=== PATIENT | male | born 1970 | race Caucasian/White ===

== ENCOUNTER 2017-05-11 05:03 | Emergency (ER) | payer BC, OTHER ==
--- NOTE | 2017-05-11 05:22 | ED Physician Documentation ---
PD HPI URI - Stated complaint Stated Complaint: CHEST CONGESTION,COUGH - Chief complaint Chief Complaint: Resp - History obtained from History obtained from: Patient - History of Present Illness Timing - onset: Yesterday Timing details: Abrupt onset Associated symptoms: Dry cough. No: Fever, Chills, Sweats, Ear pain, Sinus pain , Sore throat Improves by: Nothing Recently seen: Not recently seen - Additional information Additional information: patient had URI symptoms for last few weeks and these nearly resolved until yesterday after he came home from work in the evening when he had sudden worsening of chest congestion, cough, malaise, fatigue Review of Systems Constitutional: reports: Fatigue. denies: Fever, Chills, Sweats Ears: denies: Ear pain Nose: reports: Reviewed and negative Throat: denies: Sore throat Cardiac: reports: Reviewed and negative Respiratory: reports: Cough. denies: Dyspnea GI: reports: Reviewed and negative : denies: Dysuria, Frequency PD PAST MEDICAL HISTORY - Past Medical History Cardiovascular: None Respiratory: Asthma Endocrine/Autoimmune: None GI: GERD : None HEENT: None Psych: Depression, Anxiety Musculoskeletal: None Derm: None - Past Surgical History Past Surgical History: No - Present Medications Home Medications: Ambulatory Orders Medication Instructions Recorded Confirmed Aspirin [Aspir 81] 81 mg PO DAILY 11/16/14 05/11/17 Amitriptyline [Elavil] 10 mg PO DAILY 05/11/17 05/11/17 Benzonatate [Tessalon Perle] 100 mg PO Q6HR PRN #20 capsule 05/11/17 Levothyroxine [Synthroid] 50 mcg PO DAILY 05/11/17 05/11/17 Omeprazole [PriLOSEC] 40 mg PO DAILY 05/11/17 05/11/17 Oseltamivir [Tamiflu] 75 mg PO BID #10 capsule 05/11/17 guaiFENesin/CODEINE [Robitussin AC] 5 - 10 ml PO Q6H PRN #100 udc 05/11/17 - Allergies Allergies/Adverse Reactions: Allergies Allergy/AdvReac Type Severity Reaction Status Date / Time No Known Drug Allergies Allergy Verified 05/11/17 05:10 - Social History Does the pt smoke?: No Smoking Status: Never smoker Does the pt drink ETOH?: Yes Does the pt have substance abuse?: No - Immunizations Immunizations are current?: Yes - POLST Patient has POLST: No PD ED PE NORMAL - Vitals Vital signs reviewed: Yes - General General: Alert and oriented X 3, No acute distress, Well developed/nourished - Cardiac Cardiac: RRR, No murmur, No gallop, No rub - Respiratory Respiratory: No respiratory distress, Clear bilaterally - Back Back: No CVA TTP Results - Vitals Vitals: Vital Signs - 24 hr 05/11/17 05/11/17 05:07 06:32 Temperature 36.6 C 36.7 C Heart Rate 100 78 Respiratory 16 16 Rate Blood Pressure 172/112 H 133/98 H O2 Saturation 97 97 Oxygen O2 Source Room air - Rads (name of study) chest xray Radiology: Prelim report reviewed, See rad report PD MEDICAL DECISION MAKING - ED course Complexity details: reviewed results, re-evaluated patient, considered differential, d/w patient Departure - Departure Disposition: 01 Home, Self Care Clinical Impression: Bronchitis Condition: Good Instructions: ED Upper Resp Infec No Abx Tx Follow-Up: Gianni Tang MD [Primary Care Provider] - (3-5 days if symptoms have not resolved) Prescriptions: Benzonatate [Tessalon Perle] 100 mg PO Q6HR PRN #20 capsule PRN Reason: Cough guaiFENesin/CODEINE [Robitussin AC] 5 - 10 ml PO Q6H PRN #100 udc PRN Reason: Cough Discharge Date/Time: 05/11/17 06:32
--- NOTE | 2017-05-11 06:02 | XRAY Report ---
EXAM: CHEST RADIOGRAPHY EXAM DATE: 05/11/2017 05:48 AM. CLINICAL HISTORY: Cough, chest congestion. COMPARISON: None. TECHNIQUE: 2 views. FINDINGS: Lungs/Pleura: No focal opacities evident. No pleural effusion. No pneumothorax. Normal volumes. Mediastinum: Heart and mediastinal contours are unremarkable. Other: None. IMPRESSION: Normal 2-view chest radiography. [facility] Referring Provider Line: [phone] SITE ID: [id number]
[2017-05-11 06:33] VITALS: BP 133/98
== END 2017-05-11 06:32 | disposition home or self-care (01) ==
LOC: ED 05:03
DX: J40 Bronchitis, not specified as acute or chronic (principal); Z79.82 Long term (current) use of aspirin
CPT/HCPCS: 71046; 99283

== ENCOUNTER 2017-05-11 15:46 | Emergency (ER) | payer BC, OTHER ==
[2017-05-11 15:53] VITALS: BP 171/95
[2017-05-11] MEDS ORDERED: OSELTAMIVIR 75 MG CAPSULE PO STA (16:08)
--- NOTE | 2017-05-11 16:11 | ED Physician Documentation ---
PD HPI URI - Stated complaint Stated Complaint: FLU LIKE SYMPTOMS - Chief complaint Chief Complaint: Fever - History obtained from History obtained from: Patient, Family - History of Present Illness Timing - onset: Other (Previously healthy 46-year-old gentleman with chest chest congestion since yesterday, was seen this morning had a chest clear chest x-ray. Since then he has significant fevers, chills, myalgias that were not as bad this morning. Of note his grandson is currently hospitalized with influenza and he was exposed to him.) Review of Systems Constitutional: reports: Fever, Chills, Myalgias Nose: reports: Rhinorrhea / runny nose Cardiac: denies: Palpitations Respiratory: reports: Cough. denies: Dyspnea GI: denies: Abdominal Pain PD PAST MEDICAL HISTORY - Past Medical History Cardiovascular: None Respiratory: Asthma Endocrine/Autoimmune: None GI: GERD : None HEENT: None Psych: Depression, Anxiety Musculoskeletal: None Derm: None - Past Surgical History Past Surgical History: No - Present Medications Home Medications: Ambulatory Orders Medication Instructions Recorded Confirmed Aspirin [Aspir 81] 81 mg PO DAILY 11/16/14 05/11/17 Amitriptyline [Elavil] 10 mg PO DAILY 05/11/17 05/11/17 Benzonatate [Tessalon Perle] 100 mg PO Q6HR PRN #20 capsule 05/11/17 Levothyroxine [Synthroid] 50 mcg PO DAILY 05/11/17 05/11/17 Omeprazole [PriLOSEC] 40 mg PO DAILY 05/11/17 05/11/17 Oseltamivir [Tamiflu] 75 mg PO BID #10 capsule 05/11/17 guaiFENesin/CODEINE [Robitussin AC] 5 - 10 ml PO Q6H PRN #100 udc 05/11/17 - Allergies Allergies/Adverse Reactions: Allergies Allergy/AdvReac Type Severity Reaction Status Date / Time No Known Drug Allergies Allergy Verified 05/11/17 05:10 - Social History Does the pt smoke?: No Smoking Status: Never smoker Does the pt drink ETOH?: Yes Does the pt have substance abuse?: No - Immunizations Immunizations are current?: Yes - POLST Patient has POLST: No PD ED PE NORMAL - Vitals Vital signs reviewed: Yes - General General: Alert and oriented X 3, No acute distress - HEENT HEENT: Ears normal, Pharynx benign - Neck Neck: Supple, no meningeal sign, No bony TTP - Cardiac Cardiac: RRR, No murmur - Respiratory Respiratory: No respiratory distress, Clear bilaterally - Abdomen Abdomen: Non tender - Neuro Neuro: Alert and oriented X 3, Normal speech Results - Vitals Vitals: Vital Signs - 24 hr 05/11/17 15:51 Temperature 37.9 C H Heart Rate 107 H Respiratory 18 Rate Blood Pressure 171/95 H O2 Saturation 96 Oxygen O2 Source Room air PD MEDICAL DECISION MAKING - ED course ED course: 46-year-old gentleman likely has influenza, given his exposure and classic symptoms and less than 24 hours of symptoms he is a good candidate for Tamiflu and given the low sensitivity of the flu swab I will treat him presumptively given the circumstances. Departure - Departure Disposition: 01 Home, Self Care Clinical Impression: Influenza A Condition: Good Record reviewed to determine appropriate education?: Yes Instructions: Medication: Tamiflu (Oseltamivir), ED Flu Prescriptions: Oseltamivir [Tamiflu] 75 mg PO BID #10 capsule Comments: Call your doctor to arrange a follow-up appointment, make the next available appointment. In the interim, return anytime if worse or if new symptoms develop. Your blood pressure was elevated today on check into the emergency department. This does not mean that you have hypertension, it is a common phenomenon to come to the emergency department and have elevated blood pressure. I recommend that you see your primary care physician within the week to have it rechecked when you are feeling better. Forms: Activity restrictions
== END 2017-05-11 16:15 | disposition home or self-care (01) ==
LOC: ED 15:46
DX: J09.X2 Influenza due to identified novel influenza A virus with other respiratory manifestations (principal); J40 Bronchitis, not specified as acute or chronic; Z79.82 Long term (current) use of aspirin
CPT/HCPCS: 71046; 99283; A9270

== ENCOUNTER 2020-10-01 21:05 | Emergency (ER) | payer BC, OTHER ==
[2020-10-01] MEDS ORDERED: SODIUM CHLORIDE 0.9% 1,000 ML IV STA (21:57)
[2020-10-01 22:11] LABS: BASOPHILS # (AUTO) 0.1 10^3/uL (0.0-0.1); EOSINOPHILS # (AUTO) 0.4 10^3/uL (0.0-0.7); EOSINOPHILS % (AUTO) 3.2 %; HCT - HEMATOCRIT 57.5 % (42.0-52.0); HGB - HEMOGLOBIN 18.7 g/dL (14.0-18.0); LYMPHOCYTES % (AUTO) 29.9 %; MEAN CORPUSCULAR HEMOGLOBIN 30.1 pg (27.0-31.0); MEAN CORPUSCULAR HGB CONC 32.5 g/dL (32.0-36.0); MEAN CORPUSCULAR VOLUME 92.4 fL (80.0-94.0); MEAN PLATELET VOLUME 9.8 fL (7.4-11.4); MONOCYTES # (AUTO) 1.3 10^3/uL (0.0-1.0); MONOCYTES % (AUTO) 9.9 %; NEUTROPHILS # (AUTO) 7.4 10^3/uL (1.5-6.6); NEUTROPHILS % (AUTO) 55.6 %; PLT - PLATELET COUNT 297 10^3/uL (130-450); RED BLOOD COUNT 6.22 10^6/uL (4.70-6.10); RED CELL DISTRIBUTION WIDTH 13.4 % (12.0-15.0); WHITE BLOOD COUNT 13.4 x10^3/uL (4.8-10.8)
[2020-10-01 22:28] LABS: ALBUMIN 4.6 g/dL (3.2-5.5); ALBUMIN/GLOBULIN RATIO 1.1 (1.0-2.2); BILIRUBIN,TOTAL 1.1 mg/dL (0.2-1.0); CALCIUM 9.6 mg/dL (8.5-10.3); CREATININE 1.2 mg/dL (0.6-1.2); POTASSIUM 4.6 mmol/L (3.5-5.0); TOTAL PROTEIN 8.6 g/dL (6.7-8.2)
[2020-10-01] MEDS ORDERED: diltiaZEM INJ 5 MG/ML VIAL IVP STA (22:51)
--- NOTE | 2020-10-01 22:55 | ED Physician Documentation ---
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 Patient states that he has had chest congestion over the past 4-year and has been taking Mucinex, allergy meds this week including Claritin and Flonase once daily. He had palpitations lasting about an hour last week that self resolved and has an appoint with his primary doctor upcoming. Review of Systems Ten Systems: 10 systems reviewed and negative Constitutional: reports: Fatigue. denies: Fever, Chills Cardiac: reports: Other (chest congestion). denies: Chest pain / pressure Respiratory: denies: Dyspnea GI: denies: Nausea Neurologic: reports: Generalized weakness PD PAST MEDICAL HISTORY - Past Medical History Past Medical History: Yes Cardiovascular: None Respiratory: Asthma Endocrine/Autoimmune: None GI: GERD : None HEENT: None Psych: Depression, Anxiety Musculoskeletal: None Derm: None - Past Surgical History Past Surgical History: No - Present Medications Home Medications: Ambulatory Orders Medication Instructions Recorded Confirmed Aspirin [Aspir 81] 81 mg PO DAILY 11/16/14 05/11/17 Amitriptyline [Elavil] 10 mg PO DAILY 05/11/17 05/11/17 Benzonatate [Tessalon Perle] 100 mg PO Q6HR PRN #20 capsule 05/11/17 Levothyroxine [Synthroid] 50 mcg PO DAILY 05/11/17 05/11/17 Omeprazole [PriLOSEC] 40 mg PO DAILY 05/11/17 05/11/17 Oseltamivir [Tamiflu] 75 mg PO BID #10 capsule 05/11/17 guaiFENesin/CODEINE [Robitussin AC] 5 - 10 ml PO Q6H PRN #100 udc 05/11/17 - Allergies Allergies/Adverse Reactions: Allergies Allergy/AdvReac Type Severity Reaction Status Date / Time No Known Drug Allergies Allergy Verified 10/01/20 21:19 - Social History Does the pt smoke?: No Smoking Status: Never smoker Does the pt drink ETOH?: Yes Does the pt have substance abuse?: No - Immunizations Immunizations are current?: Yes - POLST Patient has POLST: No PD ED PE NORMAL - Vitals Vital signs reviewed: Yes - General General: Alert and oriented X 3, No acute distress, Well developed/nourished - HEENT HEENT: Atraumatic, PERRL, EOMI - Neck Neck: Supple, no meningeal sign, Other (mild thyromegaly) - Cardiac Cardiac: Other (tachycardic rate, regular rhythm) - Respiratory Respiratory: No respiratory distress, Clear bilaterally - Abdomen Abdomen: Non tender, Non distended - Derm Derm: Normal color - Extremities Extremities: No deformity - Neuro Neuro: Alert and oriented X 3 - Psych Psych: Normal mood, Normal affect Results - Vitals Vitals: Vital Signs - 24 hr 10/01/20 10/01/20 10/01/20 21:13 23:06 23:40 Temperature 36.4 C L Heart Rate 147 H 134 H 87 Respiratory 18 9 L 10 L Rate Blood Pressure 129/76 126/58 L 128/82 H O2 Saturation 95 95 96 Oxygen O2 Source Room air - EKG (time done) 2120 Rate: Rate (enter#) (157) Rhythm: Sinus tachycardia 2249 Rate: Rate (enter#) (139) Rhythm: Sinus tachycardia 0000 Rate: Rate (enter#) (86) Rhythm: NSR [place]: Normal Intervals: Normal [place] QRS: Normal Ischemia: Other (no stemi) - Labs Labs: Laboratory Tests 10/01/20 10/01/20 10/01/20 22:07 22:07 22:07 WBC 13.4 H RBC 6.22 H Hgb 18.7 H Hct 57.5 H MCV 92.4 MCH 30.1 MCHC 32.5 RDW 13.4 Plt Count 297 MPV 9.8 Neut # (Auto) 7.4 H Lymph # (Auto) 4.0 H [place] # (Auto) 1.3 H Eos # (Auto) 0.4 Baso # (Auto) 0.1 Absolute Nucleated RBC 0.00 Nucleated RBC % 0.0 Sodium 139 Potassium 4.6 Chloride 101 Carbon Dioxide 27 Anion Gap 11.0 BUN 14 Creatinine 1.2 Estimated GFR (MDRD) 64 L Glucose 143 H Calcium 9.6 Total Bilirubin 1.1 H AST 22 ALT 35 Alkaline Phosphatase 66 Troponin I High Sens 19.4 Total Protein 8.6 H Albumin 4.6 Globulin 4.0 Albumin/Globulin Ratio 1.1 Lipase 38 TSH Free T4 Thyroxine (T4) Free T3 pg/mL Total T3 10/01/20 10/01/20 22:07 22:07 WBC RBC Hgb Hct MCV MCH MCHC RDW Plt Count MPV Neut # (Auto) Lymph # (Auto) [place] # (Auto) Eos # (Auto) Baso # (Auto) Absolute Nucleated RBC Nucleated RBC % Sodium Potassium Chloride Carbon Dioxide Anion Gap BUN Creatinine Estimated GFR (MDRD) Glucose Calcium Total Bilirubin AST ALT Alkaline Phosphatase Troponin I High Sens Total Protein Albumin Globulin Albumin/Globulin Ratio Lipase TSH 6.29 H Free T4 0.96 Thyroxine (T4) 9.84 Free T3 pg/mL 3.87 Total T3 1.37 PD MEDICAL DECISION MAKING - ED course ED course: 49-year-old man with Deng's disease presents with intermittent palpitations over the past week. Will obtain thyroid function testing and reevaluate. Also with polycythemia on lab work which I discussed with him and his . Need to follow-up with your primary care doctor in regards to that for referral to hematology. HR normalized after cardizem, and patient is now asymptomatic. return precautions given. He will plan to follow-up with his primary doctor For referral to hematology oncology in regards to the polycythemia. Departure - Departure Disposition: 01 Home, Self Care Clinical Impression: Polycythemia, Tachycardia Condition: Good Instructions: ED Palpitations Comments: You were seen in the emergency department for evaluation of tachycardia. Your heart rate went down to normal after we gave you 20 of IV Cardizem, a blood pressure and heart rate lowering medication. Your lab work was normal with the exception of polycythemia, as we discussed (an elevated hemoglobin of 18.7). You also had a mildly elevated TSH. Please follow-up with your primary doctor in regards to these findings. Return to the emergency department if you have any new or worsening symptoms or other concerns.
[2020-10-01 23:32] LABS: T4 (THYROXINE) 9.84 ug/dL (6.09-12.23)
[2020-10-01 23:35] LABS: THYROID STIMULATING HORMONE 6.29 uIU/mL (0.34-5.60)
[2020-10-01 23:37] LABS: FREE T3 3.87 pg/mL (2.5-3.9); FREE T4 (FREE THYROXINE) 0.96 ng/dL (0.58-1.64)
[2020-10-01 23:41] VITALS: BP 128/82
--- NOTE | 2020-10-02 08:34 | XRAY Report ---
PROCEDURE: Chest 1 View X-Ray INDICATIONS: Chest Pain TECHNIQUE: One view of the chest was acquired. COMPARISON: 2 view chest 05/11/2017. FINDINGS: Surgical changes and devices: None. Lungs and pleura: No pleural effusions or pneumothorax. Lungs are clear. Mediastinum: Mediastinal contours appear normal. Heart size is normal. Bones and chest wall: No suspicious bony lesions. Overlying soft tissues appear unremarkable. IMPRESSION: Normal for age, source of current symptoms is not seen. Reviewed by: Kingston Hauser MD on 10/02/2020 8:33 AM PDT Approved by: Kingston Hauser MD on 10/02/2020 8:33 AM PDT Station ID: [id number]
== END 2020-10-02 00:21 | disposition home or self-care (01) ==
LOC: ED 21:05
DX: R00.0 Tachycardia, unspecified (principal); D75.1 Secondary polycythemia; E06.3 Autoimmune thyroiditis; Z79.82 Long term (current) use of aspirin
CPT/HCPCS: 36415; 80053; 83690; 84436; 84439; 84443; 84480; 84481; 84484; 85025; 93005; 96374; 99284